=== PATIENT | female | born 1985 | race Two or more races ===

== ENCOUNTER → 2024-06-11 | Outpatient (CLI) | payer MEDICAID, SELFPAY ==
--- NOTE | 2024-06-11 15:06 | XR_ITS ---
Bilateral wrists 6 views TECHNIQUE: AP oblique lateral each wrist total 6 views Exam date and time: June 11, 2024 1536 hours INDICATIONS: Bilateral wrist pain 2 years ago post fall FINDINGS: No fracture or dislocation involving either wrist No erosive or other significant arthritic change involving either wrist No avascular necrosis No opaque foreign bodies IMPRESSION: No fracture or dislocation involving either wrist
--- NOTE | 2024-06-11 15:06 | XR_ITS ---
Examination: Bilateral hands, 6 views. Technique: AP, Oblique, Lateral each hand total 6 views Date and time of exam: June 11, 2024 1531 hours INDICATIONS: Bilateral hand pain beginning 2 years ago FINDINGS: No acute fracture No dislocation No foreign body IMPRESSION: No acute fracture Old deformity ungual tuft tip distal phalanx left first digit
== END | disposition home or self-care (01) ==
LOC: CDIM 14:47
PROVIDERS: PCP Family Medicine; Referring Provider Nurse Practitioner Gerontology; Visit Provider Nurse Practitioner Gerontology
DX: M25.532 Pain in left wrist (principal); M25.531 Pain in right wrist; M79.642 Pain in left hand; M79.641 Pain in right hand; Z87.81 Personal history of (healed) traumatic fracture
CPT/HCPCS: 73110; 73130

== ENCOUNTER → 2024-08-08 | Outpatient (CLI) | payer MEDICAID, SELFPAY ==
--- NOTE | 2024-08-08 | XR_ITS ---
Examination: MRI left hand, without contrast Date and time of exam: August 08, 2024 0727 hours INDICATIONS: Laceration to the fifth digit several weeks ago with stiffness and pain weakness Technique: Multiple axial sagittal and coronal images of the left hand have been obtained with the Siemens high-resolution 1.5 [employer] MRI scanner. Images obtained include T2-weighted fat-suppressed sagittal sections, TR 3500, TE 46, T2 weighted coronal fat suppressed images, TR 3050, TE 84, T2-weighted transverse fat suppressed images, TR 3260, TE 63, proton density transverse images, TR 4720 TE 46, and T1 weighted coronal images, TR 560, TE 13. Findings: Mild marrow edema in the distal aspect proximal phalanx fifth digit Edema in the soft tissue palmar to the distal phalanx fifth digit No avascular necrosis Flexor extensor tendons appear intact flexor tendon is not visualized at the palmar aspect of the distal phalanx fifth digit No soft tissue hematoma No cortical bone destruction No occult fracture IMPRESSION: Findings most consistent with tear of the flexor tendon fifth digit at the level of the distal phalanx
== END | disposition home or self-care (01) ==
PROVIDERS: PCP Family Medicine; Referring Provider Surgery Surgery of the Hand; Visit Provider Surgery Surgery of the Hand
DX: S66.117A Strain of flexor muscle, fascia and tendon of left little finger at wrist and hand level, initial encounter (principal); X58.XXXA Exposure to other specified factors, initial encounter
CPT/HCPCS: 73218